=== PATIENT | male | born 1980 | race African-American/Black ===

== ENCOUNTER 2016-09-09 10:00 | Emergency (ER) | payer MEDICAID ==
[~2016-09-09] VITALS: Ht 172.7 cm; Wt 90.0 kg
[2016-09-09] MEDS ORDERED: HYDROCODONE/ACETAMINOPHEN 5/325MG TABLET PO ONE (11:30)
[2016-09-09] MEDS ORDERED: ONDANSETRON 4MG ODT PO ONE (11:30)
[2016-09-09 13:08] VITALS: BP 155/95
== END 2016-09-09 13:30 | disposition home or self-care (01) ==
LOC: ER 11:08
DX: S60.222A Contusion of left hand, initial encounter (principal); F12.10 Cannabis abuse, uncomplicated; Z88.8 Allergy status to other drugs, medicaments and biological substances; Y04.0XXA Assault by unarmed brawl or fight, initial encounter; Y93.89 Activity, other specified; Y92.89 Other specified places as the place of occurrence of the external cause; Y99.8 Other external cause status
CPT/HCPCS: 29125; 73130; 99284; Q0162

== ENCOUNTER 2017-03-01 10:06 | Emergency (ER) | payer MEDICAID, OTHER ==
[~2017-03-01] VITALS: Ht 175.3 cm; Wt 84.0 kg
[2017-03-01] MEDS ORDERED: HYDROCODONE/ACETAMINOPHEN 10/325MG TABLET PO ONE ×2 (13:15→14:30)
[2017-03-01] MEDS ORDERED: LIDOCAINE HCL 2% 5ML SYRINGE IV ONE (13:30)
[2017-03-01] MEDS ORDERED: LIDOCAINE HCL/PF 2% 20 MG/ML 10ML VIAL IJ SCH (13:45)
[2017-03-01] MEDS ORDERED: LIDOCAINE HCL 1% 20ML VIAL (Pyxis) INJ INFIL ONE ×2 (13:45)
[2017-03-01 15:09] VITALS: BP 150/90
== END 2017-03-01 15:13 | disposition home or self-care (01) ==
LOC: ER 10:49
DX: S63.257A Unspecified dislocation of left little finger, initial encounter (principal); W22.8XXA Striking against or struck by other objects, initial encounter; Y93.89 Activity, other specified; Y92.69 Other specified industrial and construction area as the place of occurrence of the external cause; Y99.0 Civilian activity done for income or pay
CPT/HCPCS: 26770; 73130; 73140; 99284; J3490